=== PATIENT | female | born 1955 ===

== ENCOUNTER 2017-07-28 13:31 | Emergency (ER) | payer MEDICAID ==
[2017-07-28 13:49] VITALS: RESP 16; TEMP 97.5; O2SAT 98
--- NOTE | 2017-07-28 14:17 | C.PDOC ---
History Of Present Illness 62 year old female presents to the ED c/o b/l ear pain x 3 days. Patient states " I think it's full of wax." Patient denies hearing loss and discharge. B/L EAR PAIN X 3 DAYS. NO DC. "I THINK IT'S FULL OF WAX". NO HEARING LOSS, DC. EXAM HEENT B/L IMPACTED CERUMEN. +MILD SWELL L EAR CANAL. NO DC, REDNESS. NO FACIAL SWELL, OCCIPITAL TEND REMAINDE RNEG Time Seen by Provider: 07/28/17 13:52 Chief Complaint (Nursing): ENT Problem History Per: Patient History/Exam Limitations: None Onset/Duration Of Symptoms: Days (3) Current Symptoms Are (Timing): Still Present Quality (Ear): Pain W/Touch Past Medical History Reviewed: Historical Data, Nursing Documentation, Vital Signs Vital Signs: Last Vital Signs Temp 97.5 F L 07/28/17 13:47 Pulse 69 07/28/17 14:31 Resp 16 07/28/17 14:31 BP 118/81 07/28/17 14:31 Pulse Ox 98 07/28/17 14:31 - Medical History PMH: No Chronic Diseases Surgical History: No Surg Hx Family History: States: Unknown Family Hx - Social History Hx Alcohol Use: No Hx Substance Use: No - Immunization History Hx Tetanus Toxoid Vaccination: No Hx Influenza Vaccination: No Hx Pneumococcal Vaccination: No Review Of Systems ENT: Positive for: Ear Pain (B/L ). Negative for: Ear Discharge, Other ( hearing loss) Physical Exam - Physical Exam Appears: Non-toxic, No Acute Distress Skin: Normal Color, Warm, Dry Head: Atraumatic, Normacephalic, No Tenderness (occipital ), No Swelling ( facial ) Eye(s): bilateral: Normal Inspection Ear(s): Bilateral: Other (cerumen impaction. mild swelling to left ear canal. no dishcarge or redness) Throat: Normal, No Erythema, No Exudate Neck: Supple Extremity: Normal ROM, Capillary Refill (less than 2 seconds ) Neurological/Psych: Oriented x3, Normal Speech, Normal Cognition Gait: Steady ED Course And Treatment O2 Sat by Pulse Oximetry: 98 (on RA ) Pulse Ox Interpretation: Normal Progress Note: Motrin PO and Tylenol PO administered. Disposition Counseled Patient/Family Regarding: Diagnosis, Need For Followup, Rx Given - Disposition Referrals: [facility] [Outside] [facility] [Outside] Disposition: HOME/ ROUTINE Disposition Time: 14:14 Condition: IMPROVED Prescriptions: ACETIC ACID 2% Otic Soln 4 drop Q6 #1 murphy Ciprofloxacin/Dexamethasone [Ciprodex 0.3%-0.1% 7.5 Ml] 4 drop OT BID #1 bottle Ibuprofen [Motrin] 600 mg PO Q6 #30 tab Instructions: Otitis Externa (ED), Cerumen Impaction (ED) Forms: [employer] (Romanian) Print Language: JAMAICAN - Clinical Impression Clinical Impression: Otalgia, Cerumen impaction, Otitis externa - Scribe Statement The provider has reviewed the documentation as recorded by the Scribe (Rekha Muñiz) Provider Attestation: All medical record entries made by the Scribe were at my direction and personally dictated by me. I have reviewed the chart and agree that the record accurately reflects my personal performance of the history, physical exam, medical decision making, and the department course for this patient. I have also personally directed, reviewed, and agree with the discharge instructions and disposition.
[2017-07-28 14:32] VITALS: BP 118/81; PULSE 69
== END 2017-07-28 14:31 | disposition home or self-care (01) ==
LOC: C.ER 13:31
DX: H60.92 Unspecified otitis externa, left ear (principal); H61.23 Impacted cerumen, bilateral